=== PATIENT | male | born 1990 | race Hispanic/Latino ===

== ENCOUNTER 2020-01-22 09:59 | Emergency (ER) | payer OTHER, SELFPAY ==
--- NOTE | 2020-01-22 10:20 | EDPHYS ---
Physician Documentation [facility] Name: Sonu Curiel Age: 29 yrs Sex: Male : 1990 Arrival Date: 01/22/2020 Time: 10:00 Bed 17 Private MD: ED Physician Alejandro Tobar HPI: 01/21 10:26 This 29 yrs old Male presents to ER via Ambulatory with complaints of Rash, kb Body Aches. 10:26 The patient's rash thought to be caused by an unknown cause. The rash is located on the kb right lateral posterior chest and right lateral anterior chest. The rash can be described as vesicular. Onset: The symptoms/episode began/occurred yesterday. Associated signs and symptoms: Pertinent positives: Pain. Severity of symptoms: At their worst the symptoms were moderate in the emergency department the symptoms are unchanged. The patient has not experienced similar symptoms in the past. The patient has not recently seen a physician. Pt reports soreness to right chest that wraps around back that started a week ago. Yesterday the area was red and today he had a rash when he woke up. . Historical: - Allergies: 10:11 No Known Allergies; iw - Home Meds: 10:11 None [Active]; iw - PMHx: 10:11 None; iw - PSHx: 10:11 None; iw - Immunization history:: Adult Immunizations up to date. - Social history:: Smoking status: Patient reports the use of cigarette tobacco products, smokes one-half pack cigarettes per day. ROS: 10:21 Constitutional: Negative for fever, chills, and weight loss, Cardiovascular: Negative kb for chest pain, palpitations, and edema, Respiratory: Negative for shortness of breath, cough, wheezing, and pleuritic chest pain, Abdomen/GI: Negative for abdominal pain, nausea, vomiting, diarrhea, and constipation, MS/Extremity: Negative for injury and deformity, Neuro: Negative for headache, weakness, numbness, tingling, and seizure. 10:21 Skin: Positive for rash, of the right lateral posterior chest and right lateral anterior chest. Exam: 10:21 Constitutional: This is a well developed, well nourished patient who is awake, alert, kb and in no acute distress. Head/Face: Normocephalic, atraumatic. Cardiovascular: Regular rate and rhythm with a normal S1 and S2. No gallops, murmurs, or rubs. Normal PMI, no JVD. No pulse deficits. Respiratory: Lungs have equal breath sounds bilaterally, clear to auscultation and percussion. No rales, rhonchi or wheezes noted. No increased work of breathing, no retractions or nasal flaring. Abdomen/GI: Soft, non-tender, with normal bowel sounds. No distension or tympany. No guarding or rebound. No evidence of tenderness throughout. MS/ Extremity: Pulses equal, no cyanosis. Neurovascular intact. Full, normal range of motion. Neuro: Awake and alert, GCS 15, oriented to person, place, time, and situation. Cranial nerves II-XII grossly intact. Motor strength 5/5 in all extremities. Sensory grossly intact. Cerebellar exam normal. Normal gait. 10:21 Skin: rash a moderate rash is noted, consistent with zoster, on the right lateral posterior chest and right lateral anterior chest. Vital Signs: 10:08 BP 129 / 97; Pulse 74; Resp 18; Temp 97.3; Pulse Ox 100% on R/A; Weight 83.91 kg (R); iw Height 5 ft. 7 in. (170.18 cm); Pain 2/10; 10:08 Body Mass Index 28.97 (83.91 kg, 170.18 cm) iw MDM: 10:15 Patient medically screened. kb 10:20 Data reviewed: vital signs, nurses notes. Data interpreted: Pulse oximetry: on room air kb is 100 %. Interpretation: normal. Counseling: I had a detailed discussion with the patient and/or guardian regarding: the historical points, exam findings, and any diagnostic results supporting the discharge/admit diagnosis, the need for outpatient follow up, a family practitioner, to return to the emergency department if symptoms worsen or persist or if there are any questions or concerns that arise at home. Administered Medications: No medications were administered Disposition: 13:05 Co-signature as Attending Physician, Alejandro Tobar MD I agree with the assessment and edgard plan of care. Disposition: 01/22/20 10:19 Discharged to Home. Impression: Zoster [herpes zoster]. - Condition is Stable. - Discharge Instructions: Shingles. - Prescriptions for Tylenol- Codeine #3 300-30 mg Oral Tablet - take 1 tablet by ORAL route every 4 hours As needed; 15 tablet. Valtrex 1 g Oral Tablet - take 1 tablet by ORAL route every 8 hours for 7 days; 21 tablet. - Work release form, Medication Reconciliation Form, Thank You Letter, Antibiotic Education, Prescription Opioid Use form. - Follow up: Emergency Department; When: As needed; Reason: Worsening of condition. Follow up: Private Physician; When: 2 - 3 days; Reason: Recheck today's complaints, Continuance of care, Re-evaluation by your physician. Signatures: Rubia Valdes FNP-C FNP-Alejandro Norris MD MD cha Williams, Irene, RN RN iw Corrections: (The following items were deleted from the chart) 10:31 10:19 01/22/2020 10:19 Discharged to Home. Impression: Zoster [herpes zoster]. iw Condition is Stable. Forms are Medication Reconciliation Form, Thank You Letter, Antibiotic Education, Prescription Opioid Use. Follow up: Emergency Department; When: As needed; Reason: Worsening of condition. Follow up: Private Physician; When: 2 - 3 days; Reason: Recheck today's complaints, Continuance of care, Re-evaluation by your physician. kb
--- NOTE | 2020-01-22 10:20 | ER ---
Nurse's Notes [facility] Name: Sonu Curiel Age: 29 yrs Sex: Male : 1990 Arrival Date: 01/22/2020 Time: 10:00 Bed 17 Private MD: Diagnosis: Zoster [herpes zoster] Presentation: 01/21 10:08 Chief complaint: Patient states: I started having a soreness on my chest and then in my iw back and i woke up this morning and now i have a really bad rash. Coronavirus screen: Client denies travel out of the [place] in the last 14 days. Ebola Screen: Patient negative for fever greater than or equal to 101.5 degrees Fahrenheit, and additional compatible Ebola Virus Disease symptoms. 10:08 Method Of Arrival: Ambulatory iw 10:10 Initial Sepsis Screen: Does the patient meet any 2 criteria? No. Patient's initial iw sepsis screen is negative. Does the patient have a suspected source of infection? No. Patient's initial sepsis screen is negative. Risk Assessment: Do you want to hurt yourself or someone else? Patient reports no desire to harm self or others. Onset of symptoms. Care prior to arrival: None. 10:10 Acuity: BRITTANY 4 iw Triage Assessment: 10:11 General: Appears in no apparent distress. comfortable, Behavior is calm, cooperative, iw appropriate for age, Reports fatigue for 12-24 hours. Pain: Complains of pain in right lateral anterior chest and right lateral posterior chest Pain does not radiate. Pain currently is 2 out of 10 on a pain scale. Quality of pain is described as stinging. EENT: No deficits noted. No signs and/or symptoms were reported regarding the EENT system. Neuro: No deficits noted. Cardiovascular: No deficits noted. Respiratory: No deficits noted. GI: No deficits noted. No signs and/or symptoms were reported involving the gastrointestinal system. : No deficits noted. No signs and/or symptoms were reported regarding the genitourinary system. Derm: Skin is intact, is healthy with good turgor, has blisters on to the right side of the chest and moving towards the back Skin is dry, Skin is pink, warm \T\ dry. Skin temperature is warm Rash noted that is red, vesicular. Musculoskeletal: No deficits noted. No signs and/or symptoms reported regarding the musculoskeletal system. Historical: - Allergies: 10:11 No Known Allergies; iw - Home Meds: 10:11 None [Active]; iw - PMHx: 10:11 None; iw - PSHx: 10:11 None; iw - Immunization history:: Adult Immunizations up to date. - Social history:: Smoking status: Patient reports the use of cigarette tobacco products, smokes one-half pack cigarettes per day. Screenin:30 Abuse screen: Denies threats or abuse. Denies injuries from another. Nutritional iw screening: No deficits noted. Tuberculosis screening: No symptoms or risk factors identified. Fall Risk None identified. Assessment: 10:29 General: Appears in no apparent distress. Behavior is calm, cooperative. Pain: iw Complains of pain in right lateral posterior chest and right lateral anterior chest. Neuro: Level of Consciousness is awake, alert, obeys commands, Oriented to person, place, time, situation, Moves all extremities. Cardiovascular: Patient's skin is warm and dry. Respiratory: Respiratory effort is even, unlabored, Respiratory pattern is regular, symmetrical. GI: No signs and/or symptoms were reported involving the gastrointestinal system. Derm: Rash noted that is raised, vesicular, on right lateral posterior chest and right lateral anterior chest. Musculoskeletal: Range of motion: intact in all extremities. Vital Signs: 10:08 BP 129 / 97; Pulse 74; Resp 18; Temp 97.3; Pulse Ox 100% on R/A; Weight 83.91 kg (R); iw Height 5 ft. 7 in. (170.18 cm); Pain 2/10; 10:08 Body Mass Index 28.97 (83.91 kg, 170.18 cm) iw ED Course: 10:00 Patient arrived in ED. ag5 10:02 Rub[facility] Valdes [facility]-C [facility]. kb 10:02 Alejandro Tobar MD is Attending Physician. kb 10:11 Triage completed. iw 10:11 Arm band placed on right wrist. iw 10:19 Helen Collier, RN is Primary Nurse. rb3 10:29 Patient has correct armband on for positive identification. iw 10:30 No provider procedures requiring assistance completed. Patient did not have IV access iw during this emergency room visit. Administered Medications: No medications were administered Outcome: 10:19 Discharge ordered by . kb 10:30 Discharged to home ambulatory. iw 10:30 Condition: good 10:30 Discharge instructions given to patient, Instructed on discharge instructions, follow up and referral plans. medication usage, Demonstrated understanding of instructions, follow-up care, medications, Prescriptions given X 2. 10:31 Patient left the ED. iw Signatures: Rubia Valdes, STRATEGIC MARKETING LEADER-C STRATEGIC MARKETING LEADER-CkDiane Hammnod, RN RN Melba Sánchez ag5 Helen Collier RN RN rb3
[2020-01-22 17:13] VITALS: BP 129/97; TEMP 97.3; O2SAT 100
== END 2020-01-22 10:31 | disposition home or self-care (01) ==
LOC: ER 09:59
DX: B02.9 Zoster without complications (principal); F17.210 Nicotine dependence, cigarettes, uncomplicated
CPT/HCPCS: 99282

== ENCOUNTER 2021-06-20 19:06 | Emergency (ER) | payer SELFPAY ==
[2021-06-20] MEDS ORDERED: METHYLPREDNISOLONE 125 MG INJ ONE (20:22)
--- NOTE | 2021-06-20 20:24 | EDPHYS ---
Physician Documentation [facility] Name: Sonu Curiel Age: 30 yrs Sex: Male : 1990 Arrival Date: 06/20/2021 Time: 19:09 Bed 9 Private MD: ED Physician Cesar Hidalgo HPI: 06/20 20:00 This 30 yrs old Male presents to ER via Ambulatory with complaints of Poison cp Danielle. 20:00 The patient's rash thought to be caused by Contact allergy. The rash is located on the cp body diffusely. The rash can be described as erythematous, urticarial. Onset: The symptoms/episode began/occurred 3 day(s) ago. Associated signs and symptoms: Pertinent positives: itching, Pertinent negatives: difficulty breathing, fever, swelling of lips, swelling of throat, swelling of tongue, vomiting. Severity of symptoms: in the emergency department the symptoms are unchanged despite home interventions. Treatment given at home: OTC lotion/cream. 20:00 Patient reports rash started after working outside cutting down trees. cp Historical: - Allergies: 19:39 No Known Allergies; vc1 - Home Meds: 19:39 None [Active]; vc1 - PMHx: 19:39 None; vc1 - PSHx: 19:39 None; vc1 - Immunization history:: Adult Immunizations up to date, Client reports having NOT received the Covid vaccine. Flu vaccine is not up to date. - Social history:: Smoking status: Patient reports the use of cigarette tobacco products, denies chronic smoking, but will smoke occasionally. ROS: 20:05 Skin: Positive for rash, diffusely. cp 20:05 Constitutional: Negative for body aches, chills, fever. cp 20:05 ENT: Negative for drainage from ear(s), ear pain, sore throat, difficulty swallowing, difficulty handling secretions. 20:05 Cardiovascular: Negative for chest pain. 20:05 Respiratory: Negative for cough, shortness of breath, wheezing. 20:05 Abdomen/GI: Negative for abdominal pain, nausea, vomiting, and diarrhea. 20:05 Neuro: Negative for altered mental status, headache, weakness. 20:05 All other systems are negative. Exam: 20:08 Constitutional: The patient appears in no acute distress, alert, awake, cp non-diaphoretic, non-toxic, well developed, well nourished. 20:08 Head/Face: Normocephalic, atraumatic. cp 20:08 Cardiovascular: Rate: normal. 20:08 Respiratory: the patient does not display signs of respiratory distress, Respirations: normal, no use of accessory muscles, no retractions, labored breathing, is not present. 20:08 Skin: rash can be described as erythematous, urticarial, and is diffusely located. Vital Signs: 20:00 Weight 81.65 kg; Height 5 ft. 7 in. (170.18 cm); vc1 20:23 BP 129 / 95; Pulse 79; Resp 16; Pulse Ox 100% on R/A; vc1 20:00 Body Mass Index 28.19 (81.65 kg, 170.18 cm) vc1 MDM: 19:45 Patient medically screened. cp 20:00 Differential diagnosis: cellulitis, hives, contact dermatitis. cp 20:23 Data reviewed: vital signs, nurses notes. cp 20:23 Counseling: I had a detailed discussion with the patient and/or guardian regarding: the cp historical points, exam findings, and any diagnostic results supporting the discharge/admit diagnosis, the need for outpatient follow up, an allergy/underwriting specialist, to return to the emergency department if symptoms worsen or persist or if there are any questions or concerns that arise at home. Response to treatment: the patient's symptoms have mildly improved after treatment, and as a result, I will discharge patient. Administered Medications: 20:23 Drug: SOLU-Medrol (methylPREDNISolone sodium succinate) 125 mg Route: IM; Site: left vc1 vastus lateralis; 20:30 Follow up: Response: No adverse reaction vc1 Disposition Summary: 06/20/21 20:23 Discharge Ordered Location: Home cp Problem: new cp Symptoms: are unchanged cp Condition: Stable cp Diagnosis - Allergic contact dermatitis due to plants, except food cp Followup: cp - With: Federico Deutsch MD - When: 2 - 3 days - Reason: Recheck today's complaints Discharge Instructions: - Discharge Summary Sheet cp - Poison [place] Dermatitis cp Forms: - Medication Reconciliation Form cp - Thank You Letter cp - Antibiotic Education cp - Prescription Opioid Use cp Prescriptions: - Vistaril 50 mg Oral capsule - take 1 capsule by ORAL route 4 times per day as needed for itching; 30 capsule; cp Refills: 0, Product Selection Permitted - Hydrocortisone 0.5 % Topical Cream - apply 1 application by TOPICAL route every 12 hours As needed apply to areas of cp rash except face and genitals as needed for next 5-7 days; 60 gram; Refills: 0, Product Selection Permitted - Prednisone 20 mg Oral Tablet - take 2 tablets by ORAL route once daily for 5 days then 1 tab daily for 3 days, cp then 1/2 tablet daily for 2 days; 14 tablet; Refills: 0, Product Selection Permitted Signatures: Alejandro Figueroa PA PA Gala Borges RN RN vc1 Corrections: (The following items were deleted from the chart) 23:52 Allergies: No Known Allergies; [place] [id number] 23:52 Home Meds: None; 1 [facility] 23:52 PMHx: None; 1 [facility] 23:52 PSHx: None; 1 1 23:52 Immunization history: Adult Immunizations up to date, Client reports having NOT vc received the Covid vaccine. Flu vaccine is not up to date. [facility] 23:52 Social history: Smoking status: Patient reports the use of cigarette tobacco 1 products, denies chronic smoking, but will smoke occasionally, vc1
--- NOTE | 2021-06-20 20:24 | ER ---
Nurse's Notes [facility] Name: Sonu Curiel Age: 30 yrs Sex: Male : 1990 Arrival Date: 06/20/2021 Time: 19:09 Bed 9 Private MD: Diagnosis: Allergic contact dermatitis due to plants, except food Presentation: 06/20 19:39 Chief complaint: Patient states: "I was cutting down trees the other day I I think I vc1 got into either poison danielle or poison sumac, usually I take Benadryl with poison Danielle and it is gone within a few days so I think this is something else because I am covered in it head to toe.". 19:39 Coronavirus screen: Vaccine status: Patient reports being unvaccinated. At this time, vc1 the client does not indicate any symptoms associated with coronavirus-19. Ebola Screen: No symptoms or risks identified at this time. Initial Sepsis Screen: Does the patient meet any 2 criteria? No. Patient's initial sepsis screen is negative. Does the patient have a suspected source of infection? No. Patient's initial sepsis screen is negative. Risk Assessment: Do you want to hurt yourself or someone else? Patient reports no desire to harm self or others. Onset of symptoms is unknown. 19:39 Method Of Arrival: Ambulatory vc1 19:39 Acuity: BRITTANY 4 vc1 23:56 Onset of symptoms was June 17, 2021. vc1 Triage Assessment: 19:39 General: Appears in no apparent distress. uncomfortable, Behavior is calm, cooperative, vc1 appropriate for age. Pain: Denies pain. Neuro: No deficits noted. Cardiovascular: No deficits noted. Respiratory: Airway is patent Respiratory effort is even, unlabored, Respiratory pattern is regular, symmetrical, Denies shortness of breath. Derm: Rash noted that is itchy, red, raised. Historical: - Allergies: 19:39 No Known Allergies; vc1 - Home Meds: 19:39 None [Active]; vc1 - PMHx: 19:39 None; vc1 - PSHx: 19:39 None; vc1 - Immunization history:: Adult Immunizations up to date, Client reports having NOT received the Covid vaccine. Flu vaccine is not up to date. - Social history:: Smoking status: Patient reports the use of cigarette tobacco products, denies chronic smoking, but will smoke occasionally. Screenin:00 Abuse screen: Denies threats or abuse. Nutritional screening: No deficits noted. vc1 Tuberculosis screening: No symptoms or risk factors identified. Fall Risk None identified. Vital Signs: 20:00 Weight 81.65 kg; Height 5 ft. 7 in. (170.18 cm); vc1 20:23 BP 129 / 95; Pulse 79; Resp 16; Pulse Ox 100% on R/A; vc1 20:00 Body Mass Index 28.19 (81.65 kg, 170.18 cm) vc1 ED Course: 19:09 Patient arrived in ED. ds1 19:12 Alejandro Figueroa PA is PHCP. cp 19:12 Cesar Hidalgo DO is Attending Physician. cp 19:39 Arm band placed on right wrist. vc1 20:00 Patient has correct armband on for positive identification. Call light in reach. vc1 20:16 Gala Byrnes RN is Primary Nurse. vc1 20:19 Federico Deutsch MD is Referral Physician. cp 20:33 No provider procedures requiring assistance completed. Patient did not have IV access vc1 during this emergency room visit. 23:52 Triage completed. vc1 Administered Medications: 20:23 Drug: SOLU-Medrol (methylPREDNISolone sodium succinate) 125 mg Route: IM; Site: left vc1 vastus lateralis; 20:30 Follow up: Response: No adverse reaction vc1 Outcome: 20:23 Discharge ordered by . cp 20:33 Discharged to home ambulatory. vc1 20:33 Condition: good 20:33 Discharge instructions given to patient, Instructed on discharge instructions, follow up and referral plans. medication usage, wound care, Demonstrated understanding of instructions, follow-up care, medications, wound care, Prescriptions given X 3. 20:35 Patient left the ED. vc1 Signatures: CarlosLina fontaine ds1 Alejandro Figueroa PA PA cp Gala Byrnes RN RN vc1 Corrections: (The following items were deleted from the chart) 23:54 23:52 Allergies: No Known Allergies; vc1 vc1 23:54 23:52 Home Meds: None; vc1 vc1 23:54 23:52 PMHx: None; vc1 vc1 23:54 23:52 PSHx: None; vc1 vc1 23:54 23:52 Immunization history: Adult Immunizations up to date, Client reports having NOT vc1 received the Covid vaccine. Flu vaccine is not up to date. vc1 23:52 Social history: Smoking status: Patient reports the use of cigarette tobacco vc1 products, denies chronic smoking, but will smoke occasionally, vc1
[2021-06-21 02:27] VITALS: BP 129/95; O2SAT 100
== END 2021-06-20 20:35 | disposition home or self-care (01) ==
LOC: ER 19:06
DX: L23.7 Allergic contact dermatitis due to plants, except food (principal); F17.210 Nicotine dependence, cigarettes, uncomplicated
CPT/HCPCS: 96372; 99283; J2930